=== PATIENT | female | born 1970 | race Caucasian/White ===

== ENCOUNTER 2016-12-05 09:24 | Emergency (ER) | payer OTHER | END 2016-12-05 10:49 | disposition home or self-care (01) | LOC: FER 09:24 | DX: M25.562 Pain in left knee (principal); M25.572 Pain in left ankle and joints of left foot; Z88.1 Allergy status to other antibiotic agents; Z87.19 Personal history of other diseases of the digestive system | CPT/HCPCS: 73564 ==